=== PATIENT | male | born 1995 | race Caucasian/White ===

== ENCOUNTER 2018-07-29 22:11 | Emergency (ER) | payer BC ==
[2018-07-29] MEDS ORDERED: HYDROcodone/Acetaminophen 10/325 mg Tablet ONE (23:26)
--- NOTE | 2018-07-30 00:12 | RAD ---
RIGHT KNEE FOUR VIEWS: HISTORY: Pain. Fall. COMPARISON: None. FINDINGS: No joint effusion. Joint spaces are preserved. There appears to be a high-riding patella. Correlat e for patella nani. No fracture. No cortical irregularity. No periosteal reaction. IMPRESSION: Correlate for patella nani. POS: PPP
== END 2018-07-29 23:44 | disposition home or self-care (01) ==
LOC: ERS 22:11
DX: M23.91 Unspecified internal derangement of right knee (principal)

== ENCOUNTER 2020-10-22 17:30 | Outpatient (CLI) | payer OTHER | END 2020-10-22 17:31 | disposition home or self-care (01) | LOC: SLEEPLAB 17:30 | PROVIDERS: ATTEND Nurse Practitioner Family | DX: R06.83 Snoring (principal); F51.3 Sleepwalking [somnambulism]; R53.83 Other fatigue; R51.9 Headache, unspecified; G47.61 Periodic limb movement disorder; G47.9 Sleep disorder, unspecified | CPT/HCPCS: 95806 ==

== ENCOUNTER 2023-04-20 19:30 | Outpatient (CLI) | payer BC | END 2023-04-20 19:31 | disposition home or self-care (01) | LOC: SLEEPLAB 19:30 | PROVIDERS: ATTEND Internal Medicine Critical Care Medicine | DX: G47.33 Obstructive sleep apnea (adult) (pediatric) (principal); G47.30 Sleep apnea, unspecified; R06.83 Snoring | CPT/HCPCS: 95810 ==